=== PATIENT | male | born 1995 | race Asian ===

== ENCOUNTER → 2021-08-19 | Outpatient (CLI) | payer OTHER | LOC: LAB 08:34 | PROVIDERS: ATTEND Internal Medicine Pulmonary Disease | DX: U07.1 COVID-19 (principal); R19.7 Diarrhea, unspecified; R09.81 Nasal congestion; R68.89 Other general symptoms and signs; M79.10 Myalgia, unspecified site | CPT/HCPCS: U0003; U0005 ==